=== PATIENT | male | born 1960 | race Caucasian/White ===

== ENCOUNTER 2019-03-30 21:13 | Inpatient (IN) | payer BC ==
[~2019-03-30] VITALS: Ht 167.6 cm; Wt 110.0 kg
[~2019-03-30 21:13] MED LIST: ASPI-1 PO; CYCL-1 PO; HYDR-3965 PO; LEVO175T2 PO; LISI-600 PO; PRAV80TA3 PO; TRAM50TA2 PO; TRAZ-219 PO
[2019-03-30 22:02] LABS: BASOPHILS # (AUTO) 0.1 X10'3 (0-0.2); BASOPHILS % (AUTO) 0.6 % (0-1); EOSINOPHILS # (AUTO) 0.3 X10'3 (0-0.9); HEMATOCRIT 40.2 % (42.0-52.0); HEMOGLOBIN 13.2 g/dl (14.0-17.9); LYMPHOCYTES # (AUTO) 1.2 X10'3 (1.1-4.8); LYMPHOCYTES % (AUTO) 8.2 % (21-51); MEAN CORPUSCULAR HEMOGLOBIN 29.9 PG (27.0-31.0); MEAN CORPUSCULAR HGB CONC 32.9 g/dL (33.0-36.5); MEAN CORPUSCULAR VOLUME 90.8 FL (78-98); MEAN PLATELET VOLUME 6.9 FL (7.4-10.4); MONOCYTES # (AUTO) 0.6 X10'3 (0-0.9); MONOCYTES % (AUTO) 4.3 % (2-12); NEUTROPHILS # (AUTO) 12.7 X10'3 (1.8-7.7); NEUTROPHILS % (AUTO) 84.9 % (42-75); PLATELET COUNT 303 X10'3 (140-440); RED BLOOD COUNT 4.43 X10'6 (4.70-6.10); WHITE BLOOD COUNT 14.9 X10'3 (4.5-11.0)
[2019-03-30 22:11] LABS: ALANINE AMINOTRANSFERASE 26 U/L (12-78); ALBUMIN 3.8 G/DL (3.4-5.0); ALBUMIN/GLOBULIN RATIO 0.8 (1.1-1.5); ALKALINE PHOSPHATASE 92 IU/L (46-116); ANION GAP 9 (8-16); ASPARTATE AMINO TRANSFERASE 13 U/L (10-37); BILIRUBIN,TOTAL 0.4 MG/DL (0.1-1.0); BLOOD UREA NITROGEN 12 MG/DL (7-18); CALCIUM 9.5 MG/DL (8.5-10.1); CHLORIDE 102 MMOL/L (99-107); GLUCOSE 107 MG/DL (70-104); PARTIAL THROMBOPLASTIN TIME 24 SECONDS (22-32); POTASSIUM 3.9 MMOL/L (3.5-5.1); SODIUM 138 MMOL/L (135-145); TOTAL CARBON DIOXIDE 26.9 MMOL/L (24-32); TOTAL PROTEIN 8.3 G/DL (6.4-8.2); eGFR 77 ML/MIN
[2019-03-30] MEDS ORDERED: normal saline 1000ML IV soln IVB ONE (23:45)
[2019-03-31] MEDS ORDERED: normal saline 1000ML IV soln IVB ONE (00:35)
[2019-03-31 01:08] LABS: CLARITY,URINE SLIGHTLY CLOUDY (Clear); COLOR,URINE YELLOW (Yellow); GLUCOSE, URINE NEGATIVE (Neg); KETONES,URINE NEGATIVE (Neg); LEUKOCYTE ESTERASE ,URINE SMALL (Neg); NITRITES, URINE POSITIVE (Neg); OCCULT BLOOD,URINE MODERATE (Neg); PROTEIN,URINE NEGATIVE (Neg); UROBILINOGEN,URINE 0.2 E.U/dL (0.2-1.0)
[2019-03-31 01:14] LABS: UA COLLECTION TYPE VOIDED
[2019-03-31 01:15] LABS: BACTERIA,URINE 4+ /HPF (Neg); RBC,URINE 0-2 /HPF (0-2); SQUAMOUS EPITHELIAL CELL,UR FEW /LPF (FEW); WBC,URINE 0-4 /HPF (0-4)
[2019-03-31] MEDS ORDERED: CefTRIAXone 2gm/D5W 50ml 50 ML IV ONE (01:55)
[2019-03-31] MEDS ORDERED: acetaminophen 325mg tablet PO PRN ×2 (02:55)
[2019-03-31] MEDS ORDERED: potassium Cl 20 mEq SR tablet PO PRN ×2 (02:55)
[2019-03-31] MEDS ORDERED: magnesium 2GM in 50ml NS 50 ML IV PRN (02:55)
[2019-03-31] MEDS ORDERED: magnesium 4gm in 100ml NS 100 ML IV PRN (02:55)
[2019-03-31] MEDS ORDERED: ondansetron/PF 4mg/2ml inj IV PRN (02:55)
[2019-03-31] MEDS ORDERED: mag hydrox/Alum hydrox/simeth 30ml oral suspension PO PRN (02:55)
[2019-03-31] MEDS ORDERED: magnesium hydroxide 30ml (MOM) UD suspension PO PRN (02:55)
[2019-03-31] MEDS ORDERED: bisacodyl 10mg suppository rectal RC PRN (02:55)
[2019-03-31] MEDS ORDERED: potassium Cl 40MEQ/NS 500ml 500 ML IV PRN ×2 (02:55)
[2019-03-31] MEDS ORDERED: HYDROcodone/acetaminophen 5mg/325mg tablet PO PRN (02:55)
[2019-03-31] MEDS ORDERED: magnesium Cl slow-release 64mg tablet PO PRN (02:55)
[2019-03-31] MEDS ORDERED: traZODone 50mg tablet PO PRN (03:05)
[2019-03-31] MEDS: normal saline 1000ml 1,000 ML IV SCH ×2 (03:08→14:35)
--- NOTE | 2019-03-31 03:29 | NUR ---
Patient pulled IV out of Rt AC. New IV initiated in left hand w/o problem.
--- NOTE | 2019-03-31 03:50 | NUR ---
Patient in room . I have received report from Yenni CALLE and had the opportunity to ask questions and assume patient care. Addendum: 03/31/19 at 0351 by Catrachita Knight RN Pt not in room yet
[2019-03-31] MEDS: traMADol 50MG tablet PO SCH ×3 (03:59→12:00)
[2019-03-31 04:20] VITALS: BP 118/61
[2019-03-31 06:00] VITALS: BP 118/61
--- NOTE | 2019-03-31 06:26 | NUR ---
Problems reprioritized. Patient report given, questions answered & plan of care reviewed with Georgina CALLE.
--- NOTE | 2019-03-31 06:50 | NUR ---
Patient in room [facility]TH[facility] 4011. I have received report from LUC DOHERTY and had the opportunity to ask questions and assume patient care.
[2019-03-31] MEDS ORDERED: lisinopril 20mg tablet PO SCH (08:00)
[2019-03-31] MEDS ORDERED: levoTHYROXINE 175mcg tablet PO SCH (08:00)
[2019-03-31] MEDS: K and/or MAG REPLACEMENT MC SCH (08:49)
[2019-03-31 08:51] LABS: BASOPHILS % (AUTO) 0.3 % (0-1); EOSINOPHILS # (AUTO) 0.2 X10'3 (0-0.9); EOSINOPHILS % (AUTO) 1.5 % (0-6); HEMATOCRIT 34.8 % (42.0-52.0); HEMOGLOBIN 11.9 g/dl (14.0-17.9); LYMPHOCYTES # (AUTO) 1.4 X10'3 (1.1-4.8); LYMPHOCYTES % (AUTO) 10.7 % (21-51); MEAN CORPUSCULAR HGB CONC 34.3 g/dL (33.0-36.5); MEAN CORPUSCULAR VOLUME 90.4 FL (78-98); MONOCYTES # (AUTO) 0.7 X10'3 (0-0.9); MONOCYTES % (AUTO) 5.4 % (2-12); NEUTROPHILS # (AUTO) 10.7 X10'3 (1.8-7.7); NEUTROPHILS % (AUTO) 82.1 % (42-75); PLATELET COUNT 278 X10'3 (140-440); RED BLOOD COUNT 3.85 X10'6 (4.70-6.10); RED CELL DISTRIBUTION WIDTH 14.1 % (11.5-14.5)
[2019-03-31 08:54] LABS: ANION GAP 8 (8-16); BLOOD UREA NITROGEN 12 MG/DL (7-18); BUN/CREATININE RATIO 10.8 (5.4-32.0); CALCIUM 8.6 MG/DL (8.5-10.1); CHLORIDE 103 MMOL/L (99-107); CREATININE 1.11 MG/DL (0.60-1.10); GLUCOSE 117 MG/DL (70-104); POTASSIUM 3.8 MMOL/L (3.5-5.1); SODIUM 138 MMOL/L (135-145); TOTAL CARBON DIOXIDE 27.3 MMOL/L (24-32); eGFR 69 ML/MIN
[2019-03-31] MEDS: pravastatin 40mg tablet PO SCH (09:00)
[2019-03-31] MEDS: CefTRIAXone/D5W-Rocephin 1gm 50 ML IV SCH (09:00)
[2019-03-31] MEDS: aspirin 325mg tablet PO SCH (09:00)
[2019-03-31] MEDS: enoxaparin 40mg/0.4ml syringe SQ SCH (09:01)
[2019-03-31 10:00] VITALS: BP 93/41
[2019-03-31] MEDS: levoTHYROXINE 112mcg tablet PO SCH (11:54)
--- NOTE | 2019-03-31 17:39 | NUR ---
page to Dr. Mojica MESSAGE: [id number] Alonso Dent Patient is complaining of a sinus headache. Georgina [id number]
[2019-03-31] MEDS ORDERED: ibuprofen tablet 400 MG TABLET PO PRN (17:40)
[2019-03-31] MEDS: traMADol 50MG tablet PO PRN (17:51)
[2019-03-31 18:00] VITALS: BP 131/81
--- NOTE | 2019-03-31 18:37 | NUR ---
Report to Shelley and Catrachita CALLE
--- NOTE | 2019-03-31 18:38 | NUR ---
Patient in room [facility]TH[facility] 4011. I have received report from Georgina CALLE and had the opportunity to ask questions and assume patient care.
[2019-03-31] MEDS: lactobacillus rhamnosus 10,000 MMU CELLS/CAPSULE PO SCH (20:49)
[2019-03-31] MEDS ORDERED: temazepam 15mg capsule PO PRN (21:00)
[2019-03-31 22:00] VITALS: BP 103/57
[2019-04-01] MEDS: Potassium Cl inj 20 MEQ in normal saline 1000ml 1,000 ML IV SCH ×2 (02:51→15:42)
[2019-04-01 06:10] LABS: BASOPHILS % (AUTO) 0.6 % (0-1); EOSINOPHILS # (AUTO) 0.2 X10'3 (0-0.9); EOSINOPHILS % (AUTO) 3.5 % (0-6); HEMATOCRIT 34.2 % (42.0-52.0); HEMOGLOBIN 11.5 g/dl (14.0-17.9); LYMPHOCYTES # (AUTO) 1.4 X10'3 (1.1-4.8); LYMPHOCYTES % (AUTO) 19.3 % (21-51); MEAN CORPUSCULAR HEMOGLOBIN 30.5 PG (27.0-31.0); MEAN CORPUSCULAR HGB CONC 33.6 g/dL (33.0-36.5); MEAN CORPUSCULAR VOLUME 90.7 FL (78-98); MEAN PLATELET VOLUME 7.1 FL (7.4-10.4); MONOCYTES # (AUTO) 0.8 X10'3 (0-0.9); MONOCYTES % (AUTO) 11.1 % (2-12); NEUTROPHILS # (AUTO) 4.7 X10'3 (1.8-7.7); NEUTROPHILS % (AUTO) 65.5 % (42-75); PLATELET COUNT 254 X10'3 (140-440); RED BLOOD COUNT 3.77 X10'6 (4.70-6.10); RED CELL DISTRIBUTION WIDTH 13.9 % (11.5-14.5); WHITE BLOOD COUNT 7.1 X10'3 (4.5-11.0)
--- NOTE | 2019-04-01 06:10 | NUR ---
Problems reprioritized. Patient report given, questions answered & plan of care reviewed with Georgina CALLE.
[2019-04-01 06:16] VITALS: BP 103/60
[2019-04-01 06:41] LABS: ALANINE AMINOTRANSFERASE 20 U/L (12-78); ALBUMIN 2.8 G/DL (3.4-5.0); ALBUMIN/GLOBULIN RATIO 0.7 (1.1-1.5); ALKALINE PHOSPHATASE 68 IU/L (46-116); ANION GAP 8 (8-16); ASPARTATE AMINO TRANSFERASE 13 U/L (10-37); BILIRUBIN,TOTAL 0.3 MG/DL (0.1-1.0); BLOOD UREA NITROGEN 10 MG/DL (7-18); BUN/CREATININE RATIO 9.9 (5.4-32.0); CALCIUM 8.4 MG/DL (8.5-10.1); CHLORIDE 106 MMOL/L (99-107); CREATININE 1.01 MG/DL (0.60-1.10); GLUCOSE 109 MG/DL (70-104); MAGNESIUM 1.9 MG/DL (1.5-2.4); PHOSPHORUS 3.3 MG/DL (2.3-4.5); SODIUM 139 MMOL/L (135-145); TOTAL CARBON DIOXIDE 24.9 MMOL/L (24-32); TOTAL PROTEIN 6.8 G/DL (6.4-8.2); eGFR 76 ML/MIN
[2019-04-01] MEDS: enoxaparin 40mg/0.4ml syringe SQ SCH (07:45)
[2019-04-01] MEDS: CefTRIAXone/D5W-Rocephin 1gm 50 ML IV SCH (07:45)
[2019-04-01] MEDS: aspirin 325mg tablet PO SCH (07:46)
[2019-04-01] MEDS: lactobacillus rhamnosus 10,000 MMU CELLS/CAPSULE PO SCH ×2 (07:46→19:55)
[2019-04-01] MEDS: levoTHYROXINE 112mcg tablet PO SCH (07:46)
[2019-04-01] MEDS: lisinopril 5mg tablet PO SCH (07:46)
[2019-04-01] MEDS: pravastatin 40mg tablet PO SCH (07:49)
[2019-04-01] MEDS: K and/or MAG REPLACEMENT MC SCH (08:00)
[2019-04-01 10:00] VITALS: BP 119/79
[2019-04-01 18:00] VITALS: BP 116/68
--- NOTE | 2019-04-01 18:11 | NUR ---
Report to Jeanne CALLE
--- NOTE | 2019-04-01 18:36 | NUR ---
RECEIVED REPORT FROM HETAL CALLE AND ASSUMED PATIENT CARE ALONG WITH ORIENTING NURSE CHAS CALLE
[2019-04-01 22:00] VITALS: BP 130/90
[2019-04-02] MEDS: Potassium Cl inj 20 MEQ in normal saline 1000ml 1,000 ML IV SCH (02:37)
[2019-04-02 06:00] VITALS: BP 93/47
--- NOTE | 2019-04-02 06:10 | NUR ---
Patient report given, questions answered & plan of care reviewed with Sugey CALLE and Silvia Student Nurse.
--- NOTE | 2019-04-02 06:17 | NUR ---
received report from joseph quintana
[2019-04-02 06:53] LABS: ALANINE AMINOTRANSFERASE 22 U/L (12-78); ALBUMIN/GLOBULIN RATIO 0.7 (1.1-1.5); ALKALINE PHOSPHATASE 71 IU/L (46-116); ANION GAP 9 (8-16); ASPARTATE AMINO TRANSFERASE 15 U/L (10-37); BILIRUBIN,TOTAL 0.2 MG/DL (0.1-1.0); BLOOD UREA NITROGEN 12 MG/DL (7-18); CALCIUM 8.9 MG/DL (8.5-10.1); CHLORIDE 107 MMOL/L (99-107); CREATININE 0.92 MG/DL (0.60-1.10); GLUCOSE 112 MG/DL (70-104); POTASSIUM 4.5 MMOL/L (3.5-5.1); SODIUM 140 MMOL/L (135-145); TOTAL CARBON DIOXIDE 24.4 MMOL/L (24-32); TOTAL PROTEIN 7.4 G/DL (6.4-8.2); eGFR 85 ML/MIN
[2019-04-02] MEDS: K and/or MAG REPLACEMENT MC SCH (07:05)
[2019-04-02] MEDS: levoTHYROXINE 112mcg tablet PO SCH (07:14)
[2019-04-02] MEDS: lactobacillus rhamnosus 10,000 MMU CELLS/CAPSULE PO SCH (07:15)
[2019-04-02] MEDS: CefTRIAXone/D5W-Rocephin 1gm 50 ML IV SCH (07:15)
[2019-04-02] MEDS: aspirin 325mg tablet PO SCH (07:16)
[2019-04-02] MEDS: pravastatin 40mg tablet PO SCH (07:16)
[2019-04-02] MEDS: enoxaparin 40mg/0.4ml syringe SQ SCH (07:17)
[2019-04-02] MEDS: lisinopril 5mg tablet PO SCH (07:19)
[2019-04-02 07:27] VITALS: BP 113/65
[2019-04-02 10:00] VITALS: BP 137/81
[2019-04-02] MEDS: traMADol 50MG tablet PO PRN (10:05)
[2019-04-02] MEDS ORDERED: CEFD300C3 PO (11:21)
--- NOTE | 2019-04-02 13:30 | NUR ---
PT D/C WITH INSTRUCTIONS, UNDERSTANDING OF INSTRUCTIONS AND W/ALL BELONGINGS IN WHEELCHAIR ACCOMPANIED BY FAM MEMBERS TO PRIVATE VEHICLE TO GO HOME F/U W/PCP
== END 2019-04-02 13:15 | disposition home or self-care (01) | DRG 690 ==
LOC: ER 21:14 → ORTHO 4S 03-31 04:18
PROVIDERS: ADMIT Family Medicine; ATTEND Hospitalist
DX: N39.0 Urinary tract infection, site not specified (principal); N47.1 Phimosis; E78.00 Pure hypercholesterolemia, unspecified; E11.9 Type 2 diabetes mellitus without complications; Z82.49 Family history of ischemic heart disease and other diseases of the circulatory system; G89.29 Other chronic pain; M54.9 Dorsalgia, unspecified; Z88.8 Allergy status to other drugs, medicaments and biological substances; E03.9 Hypothyroidism, unspecified; E78.5 Hyperlipidemia, unspecified; Z96.643 Presence of artificial hip joint, bilateral; R00.0 Tachycardia, unspecified; I10 Essential (primary) hypertension; B96.89 Other specified bacterial agents as the cause of diseases classified elsewhere
CPT/HCPCS: 36415; 71045; 80048; 80053; 81001; 83605; 83735; 84100; 84145; 84443; 84484; 85025; 85610; 85730; 87040; 87070; 87077; 87088; 87186; 93005; 96365; 99285; G0378; J0696; J1650; J3480; J7030